=== PATIENT | male | born 1960 | race Caucasian/White ===

== ENCOUNTER 2020-10-28 06:51 | Day surgery (SDC) | payer OTHER ==
[2020-10-26 11:38] LABS: COVID AG,FIA SOURCE NASOPHARYNGEAL
[~2020-10-28] VITALS: Ht 167.6 cm; Wt 90.9 kg
[~2020-10-28 06:51] MED LIST: ACET-3385 PO; ALBU8HFA IH; ASPI-1444 PO; BENZ-70 PO; CYCL10 PO; FAMO20 PO; FLUT16H NASAL; METF-960 PO; MONT-35 PO; NAPR-1025 PO; PRED-409 PO; SODIUM CHLORIDE 0.9% 1,000 ML IV ONE
[2020-10-28] MEDS ORDERED: ALBUTEROL SULFATE 2.5 MG/0.5 ML NEB SOLUTION NEB ONE (06:52)
[2020-10-28] MEDS ORDERED: LIDOCAINE 2% 30 ML JELLY TP ONE (06:52)
[2020-10-28] MEDS ORDERED: BENZOCAINE 20% 50 MCG/SPRAY 57 GM TP ONE (06:52)
[2020-10-28] MEDS ORDERED: SODIUM CHLORIDE 0.9% 1,000 ML ONE (06:54)
[2020-10-28] MEDS ORDERED: MIDAZOLAM HCL 5 MG/ML VIAL ONE (08:20)
[2020-10-28] MEDS ORDERED: FentaNYL CITRATE PF 100 MCG/2 ML VIAL ONE (08:20)
[2020-10-28] MEDS ORDERED: MethylPREDNISolone SOD SUCC 125 MG/2 ML VIAL IVP ONE (09:15)
[2020-10-28] MEDS ORDERED: MethylPREDNISolone SOD SUCC 125 MG/2 ML VIAL ONE (09:56)
[2020-10-28] MEDS ORDERED: OXYGEN THERAPY IH SCH (20:00)
== END 2020-10-28 11:15 | disposition home or self-care (01) ==
LOC: SURGERY 06:51
PROVIDERS: ATTEND Internal Medicine Critical Care Medicine
DX: J38.4 Edema of larynx (principal); B37.0 Candidal stomatitis; J44.9 Chronic obstructive pulmonary disease, unspecified; I10 Essential (primary) hypertension; Z98.890 Other specified postprocedural states; Z87.891 Personal history of nicotine dependence; Z88.8 Allergy status to other drugs, medicaments and biological substances
CPT/HCPCS: 31623; 31624; 71045; 87015; 87070; 87101; 87205; 87206; 87220; 87426; 88108; 88184; 88185; 88312; C9803; J2250; J2930; J3010; J7030; J7613

== ENCOUNTER 2022-03-07 06:35 | Day surgery (SDC) | payer OTHER ==
[~2022-03-07] VITALS: Ht 167.6 cm; Wt 89.1 kg
[~2022-03-07 06:35] MED LIST changes: +CYCL-448 PO; -CYCL10 PO; -FLUT16H NASAL; +FLUT16SP NASAL; +METF-1211 PO; -METF-960 PO; -PRED-409 PO; +PRED-549 PO; -SODIUM CHLORIDE 0.9% 1,000 ML IV ONE
[2022-03-07] MEDS ORDERED: BENZOCAINE 20% 50 MCG/SPRAY 57 GM TP ONE (06:36)
[2022-03-07] MEDS ORDERED: LIDOCAINE 4% 50 ML SOLUTION TP ONE (06:36)
[2022-03-07] MEDS ORDERED: ALBUTEROL SULFATE 2.5 MG/0.5 ML NEB SOLUTION NEB ONE (06:36)
[2022-03-07] MEDS ORDERED: LIDOCAINE 2% 11 ML JELLY TP ONE (06:36)
[2022-03-07 06:50] LABS: COVID AG,FIA SOURCE NASAL SWAB
[2022-03-07] MEDS ORDERED: SODIUM CHLORIDE 0.9% 1,000 ML IV ONE (07:00)
[2022-03-07] MEDS ORDERED: ESCI-8 PO (07:02)
[2022-03-07] MEDS ORDERED: BACL10TA PO (07:02)
[2022-03-07] MEDS ORDERED: LISI-658 PO (07:02)
[2022-03-07] MEDS ORDERED: CHOL500013 PO (07:02)
[2022-03-07] MEDS ORDERED: OMEP20 PO (07:02)
[2022-03-07] MEDS ORDERED: MAGN400T57 PO (07:02)
[2022-03-07] MEDS ORDERED: BUSP10TA23 PO (07:02)
[2022-03-07] MEDS ORDERED: SODIUM CHLORIDE 0.9% 1,000 ML ONE (07:07)
[2022-03-07] MEDS ORDERED: FentaNYL CITRATE PF 100 MCG/2 ML VIAL ONE (08:19)
[2022-03-07] MEDS ORDERED: MIDAZOLAM HCL 2 MG/2 ML VIAL ONE (08:19)
[2022-03-07] MEDS ORDERED: MethylPREDNISolone SOD SUCC 125 MG/2 ML VIAL ONE (09:12)
[2022-03-07] MEDS ORDERED: MethylPREDNISolone SOD SUCC 125 MG/2 ML VIAL IVP ONE (09:15)
[2022-03-07] MEDS ORDERED: OXYGEN THERAPY IH SCH (20:00)
== END 2022-03-07 11:30 | disposition home or self-care (01) ==
LOC: SURGERY 06:35
PROVIDERS: ATTEND Internal Medicine Critical Care Medicine
DX: J38.4 Edema of larynx (principal); B37.0 Candidal stomatitis; J44.9 Chronic obstructive pulmonary disease, unspecified; Z88.1 Allergy status to other antibiotic agents; I10 Essential (primary) hypertension; F17.210 Nicotine dependence, cigarettes, uncomplicated; Z79.899 Other long term (current) drug therapy; Z98.890 Other specified postprocedural states; Z20.822 Contact with and (suspected) exposure to COVID-19
CPT/HCPCS: 31623; 87101; 87220; 87070; 88108; 88305; 87186; 31624; 71045; 87015; 87426; 87206; J3010; J2250; J2930; Q9967; J7030; C9803; J7613; Z7610

== ENCOUNTER 2023-04-10 06:50 | Day surgery (SDC) | payer OTHER ==
[~2023-04-10] VITALS: Ht 162.6 cm; Wt 90.9 kg
[~2023-04-10 06:50] MED LIST changes: +ALBU18HF12 IH; -ALBU8HFA IH; +BACL10TA PO; +BENZ-227 PO; -BENZ-70 PO; +BUSP10TA23 PO; +CHOL500013 PO; +ESCI-8 PO; +LISI-658 PO; +MAGN400T57 PO; -METF-1211 PO; -NAPR-1025 PO; +OMEP20 PO
[2023-04-10] MEDS ORDERED: ALBUTEROL SULFATE 2.5 MG/0.5 ML NEB SOLUTION NEB ONE (06:51)
[2023-04-10] MEDS ORDERED: BENZOCAINE 20% 50 MCG/SPRAY 57 GM TP ONE (06:51)
[2023-04-10] MEDS ORDERED: LIDOCAINE 2% 11 ML JELLY TP ONE (06:51)
[2023-04-10] MEDS ORDERED: LIDOCAINE 4% 50 ML SOLUTION TP ONE (06:51)
[2023-04-10] MEDS ORDERED: SODIUM CHLORIDE 0.9% 1,000 ML ONE (07:27)
[2023-04-10] MEDS ORDERED: FLUMAZENIL 0.1 MG/ML 5 ML VIAL IVP ONE (07:55)
[2023-04-10] MEDS ORDERED: DiphenhydrAMINE HCL 50 MG/ML VIAL ONE (07:55)
[2023-04-10] MEDS ORDERED: NALOXONE HCL 0.4 MG/ML VIAL ONE (07:55)
[2023-04-10] MEDS ORDERED: EPINEPHrine 1:10,000 [1 MG/10 ML] SYRINGE ONE (07:55)
[2023-04-10] MEDS ORDERED: SODIUM TETRADECYL SULFATE 3% 60 MG/2 ML VIAL IVP ONE (07:55)
[2023-04-10] MEDS ORDERED: FentaNYL CITRATE PF 100 MCG/2 ML VIAL ONE (07:56)
[2023-04-10] MEDS ORDERED: ATROPINE SULFATE 0.1 MG/ML 10 ML SYRINGE IVP ONE (07:56)
[2023-04-10] MEDS ORDERED: MIDAZOLAM HCL 2 MG/2 ML VIAL ONE (07:56)
[2023-04-10] MEDS ORDERED: SODIUM CHLORIDE 0.9% 1,000 ML IV ONE (08:00)
[2023-04-10 09:15] VITALS: PULSE 72; RESP 19; O2SAT 100
[2023-04-10] MEDS ORDERED: MethylPREDNISolone SOD SUCC 125 MG/2 ML VIAL IVP ONE (09:15)
[2023-04-10] MEDS ORDERED: MethylPREDNISolone SOD SUCC 125 MG/2 ML VIAL ONE (09:23)
== END 2023-04-10 11:00 | disposition home or self-care (01) ==
LOC: SURGERY 06:50
PROVIDERS: ATTEND Internal Medicine Critical Care Medicine
DX: J38.4 Edema of larynx (principal); B37.0 Candidal stomatitis; J44.9 Chronic obstructive pulmonary disease, unspecified; E11.9 Type 2 diabetes mellitus without complications; I10 Essential (primary) hypertension; Z88.8 Allergy status to other drugs, medicaments and biological substances; Z98.890 Other specified postprocedural states
CPT/HCPCS: 31623; 87206; 87101; 87220; 87070; 87186; 31624; 94640; 71045; 87015; J3010; J2250; J2930; Q9967; J7030; J0171; J0461; J1200; J2310; J3490; J7613; Z7610